=== PATIENT | female | born 1950 | race Hispanic/Latino ===

== ENCOUNTER 2018-05-15 11:11 | Emergency (ER) | payer MEDICAID, OTHER ==
[2018-05-15] MEDS ORDERED: ASPIRIN 325 MG TABLET ONE (11:21)
[2018-05-15 11:30] LABS: BASOPHILS % (AUTO) 0.3 % (0.0-5.0); EOSINOPHILS % (AUTO) 0.1 % (0.0-8.0); HEMATOCRIT 37.9 % (36-48); LYMPHOCYTES % (AUTO) 15.3 % (21.0-51.0); MEAN CORPUSCULAR HEMOGLOBIN 29.4 pg (27.0-33.0); MEAN CORPUSCULAR HGB CONC 33.8 g/dL (32.0-36.0); MEAN CORPUSCULAR VOLUME 86.8 fL (79-99); MONOCYTES % (AUTO) 5.9 % (3.0-13.0); NEUTROPHILS % (AUTO) 78.4 % (40.0-77.0); NUCLEATED RED BLOOD CELLS 0.1 % (0.0-0.19); PLATELET COUNT (AUTO) 235 K/uL (130-400); RED BLOOD CELL COUNT(AUTO) 4.37 MIL/uL (4.00-5.50); RED CELL DISTRIBUTION WIDTH 15.2 % (11.0-15.5); WHITE BLOOD COUNT (AUTO) 11.7 K/uL (4.8-10.8)
[2018-05-15 11:43] LABS: CREATININE 1.1 mg/dL (0.5-1.5); POTASSIUM 3.6 mmol/L (3.5-5.1)
[2018-05-15 11:48] LABS: ALBUMIN 3.5 g/dL (3.5-5.0); BILIRUBIN,TOTAL 0.9 mg/dL (0.2-1.0); TOTAL PROTEIN, SERUM 7.5 g/dL (6.0-8.3)
[2018-05-15 11:56] LABS: CREATINE KINASE, TOTAL 319 U/L (21-232); MYOGLOBIN 132 ng/mL (10-92); TROPONIN I < 0.04 ng/mL (0.00-0.06)
[2018-05-15 12:25] LABS: INR 1.07 (0.85-1.15); PARTIAL THROMBOPLASTIN TIME 37.2 SEC (26.3-35.5); PROTHROMBIN TIME 11.2 SEC (9.6-11.6)
== END 2018-05-15 14:34 | disposition home or self-care (01) ==
LOC: EDH 11:11
DX: J20.9 Acute bronchitis, unspecified (principal); R04.2 Hemoptysis
CPT/HCPCS: 36415; 71045; 80053; 82550; 83874; 84484; 85025; 85610; 85730; 93005

== ENCOUNTER 2018-08-21 16:55 | Emergency (ER) | payer OTHER ==
[2018-08-21] MEDS ORDERED: KETOROLAC TROMETHAMINE 30MG/ML ONE (17:43)
[2018-08-21 17:55] LABS: BASOPHILS % (AUTO) 0.4 % (0.0-5.0); EOSINOPHILS % (AUTO) 0.4 % (0.0-8.0); HEMATOCRIT 41.7 % (36-48); LYMPHOCYTES % (AUTO) 28.4 % (21.0-51.0); MEAN CORPUSCULAR HEMOGLOBIN 29.6 pg (27.0-33.0); MEAN CORPUSCULAR HGB CONC 33.6 g/dL (32.0-36.0); MEAN CORPUSCULAR VOLUME 88.1 fL (79-99); MONOCYTES % (AUTO) 6.4 % (3.0-13.0); NEUTROPHILS % (AUTO) 64.4 % (40.0-77.0); NUCLEATED RED BLOOD CELLS 0.1 % (0.0-0.19); PLATELET COUNT (AUTO) 280 K/uL (130-400); RED BLOOD CELL COUNT(AUTO) 4.73 MIL/uL (4.00-5.50); RED CELL DISTRIBUTION WIDTH 15.3 % (11.0-15.5); WHITE BLOOD COUNT (AUTO) 9.9 K/uL (4.8-10.8)
[2018-08-21 18:11] LABS: CREATININE 1.1 mg/dL (0.5-1.5); POTASSIUM 3.9 mmol/L (3.5-5.1)
[2018-08-21 18:12] LABS: INR 0.99 (0.85-1.15); PARTIAL THROMBOPLASTIN TIME 31.6 SEC (26.3-35.5); PROTHROMBIN TIME 10.4 SEC (9.6-11.6)
[2018-08-21 18:15] LABS: ALBUMIN 3.8 g/dL (3.5-5.0); BILIRUBIN,TOTAL 0.5 mg/dL (0.2-1.0); TOTAL PROTEIN, SERUM 7.4 g/dL (6.0-8.3)
== END 2018-08-21 19:10 | disposition home or self-care (01) ==
LOC: EDH 16:55
DX: R07.89 Other chest pain (principal); R53.1 Weakness
CPT/HCPCS: 36415; 71045; 80053; 82550; 84484; 85025; 85610; 85730; 93005; 96374; 99284; J1885

== ENCOUNTER 2019-06-29 11:30 | Inpatient (IN) | payer OTHER ==
[~2019-06-29] VITALS: Ht 154.9 cm; Wt 77.6 kg
[2019-06-29] MEDS ORDERED: ONDANSETRON HCL 4 MG/2 ML VIAL ONE (12:10)
[2019-06-29] MEDS ORDERED: SODIUM CHLORIDE 0.9% 1000ML 1,000 ML IV ONE (12:11)
[2019-06-29 12:13] LABS: BASOPHILS % (AUTO) 0.3 % (0.0-5.0); EOSINOPHILS % (AUTO) 0.1 % (0.0-8.0); LYMPHOCYTES % (AUTO) 4.4 % (21.0-51.0); MEAN CORPUSCULAR HEMOGLOBIN 28.8 pg (27.0-33.0); MEAN CORPUSCULAR HGB CONC 32.8 g/dL (32.0-36.0); MEAN CORPUSCULAR VOLUME 87.6 fL (79-99); MONOCYTES % (AUTO) 7.4 % (3.0-13.0); NEUTROPHILS % (AUTO) 87.3 % (40.0-77.0); PLATELET COUNT (AUTO) 264 K/uL (130-400); RED BLOOD CELL COUNT(AUTO) 4.45 MIL/uL (4.00-5.50); RED CELL DISTRIBUTION WIDTH 14.6 % (11.0-15.5); WHITE BLOOD COUNT (AUTO) 23.7 K/uL (4.8-10.8)
[2019-06-29 12:21] LABS: CREATININE 1.3 mg/dL (0.5-1.5); POTASSIUM 4.4 mmol/L (3.5-5.1)
[2019-06-29 12:26] LABS: BILIRUBIN,TOTAL 2.3 mg/dL (0.2-1.0); TOTAL PROTEIN, SERUM 7.2 g/dL (6.0-8.3)
[2019-06-29 14:28] LABS: APPEARANCE,URINE Cloudy (CLEAR); BILIRUBIN,URINE Small (NEGATIVE); COLOR,URINE Dark Yellow (YELLOW); GLUCOSE, URINE (UA) Negative (NEGATIVE); KETONES,URINE Negative (NEGATIVE); LEUKOCYTE ESTERASE ,URINE Moderate (NEGATIVE); NITRATE,URINE Negative (NEGATIVE); OCCULT BLOOD,URINE Trace (NEGATIVE); PROTEIN,URINE POS 1+ mg/dL (NEGATIVE)
[2019-06-29 14:37] LABS: BACTERIA,URINE Rare /HPF (None Seen); RBC,URINE 0-1 /HPF (0-1); SQUAMOUS EPITHELIAL CELL,UR Few /HPF (0-2)
[2019-06-29] MEDS ORDERED: CEFTRIAXONE SODIUM 1 GM ONE (15:12)
[2019-06-29] MEDS ORDERED: MORPHINE SULFATE 4 MG/1ML SYG ONE (15:13)
[2019-06-29] MEDS ORDERED: SODIUM CHLORIDE 0.9% 50 ML IV ONE (15:13)
[2019-06-29] MEDS ORDERED: ZOSYN 3.375GM+NS 50ML 50 ML IV SCH (17:30)
[2019-06-29] MEDS ORDERED: VANCOMYCIN PROTOCOL PER PHARMACY IV SCH (17:30)
[2019-06-29] MEDS ORDERED: DEXTROSE 5 % AND 0.9 % NACL 1,000 ML IV SCH (17:45)
[2019-06-29] MEDS ORDERED: COMPOUND IV REFRIGERATED 1 EACH IVSOLN MISC PRN (17:45)
[2019-06-29 18:35] VITALS: BP 125/67
[2019-06-29] MEDS: SODIUM CHLORIDE 0.9% 1000ML 1,000 ML IV SCH (18:48)
[2019-06-29 19:00] VITALS: BP 111/61
[2019-06-29] MEDS: METRONIDAZOLE 500MG/100ML BAG 100 ML IV SCH (21:25)
[2019-06-29] MEDS: VANCOMYCIN 1.25 GM in SODIUM CHLORIDE 0.9% 250 ML IV SCH (22:54)
[2019-06-29] MEDS: ZOSYN 3.375GM+NS 50ML 50 ML IV SCH (22:54)
[2019-06-29] MEDS: MORPHINE SULFATE 2 MG/ML 1ML SYG IV PRN (23:05)
[2019-06-30] VITALS: BP 109/57
[2019-06-30] MEDS: MORPHINE SULFATE 2 MG/ML 1ML SYG IV PRN ×4 (02:54→20:46)
--- NOTE | 2019-06-30 03:13 | NUR ---
NOTE AREA ON LEFT BUTTOCK WITH REDNESS/TENDER NOTED TO BE DRAINING SOME STAINS NOTED ON BED PAD. COLLECTED A SWAB AND PLACED 5 STERILE 4X4 GAUZES ON AREA SECURED WITH PAPER TAPE. CONTACTED HOSPITALIST PHYLICIA VERGARA TO NOTIFY. OBTAINED ORDERS FOR AN AEROBIC AND AEROBIC CULTURE TO BE DONE ON SWAB SAMPLE. NOTIFIED PATIENT OF NEW ORDER AND SENT SAMPLE TO LAB.
[2019-06-30 04:00] VITALS: BP 111/56
[2019-06-30 05:37] LABS: BASOPHILS % (AUTO) 0.2 % (0.0-5.0); EOSINOPHILS % (AUTO) 0.2 % (0.0-8.0); HEMATOCRIT 35.1 % (36-48); LYMPHOCYTES % (AUTO) 4.3 % (21.0-51.0); MEAN CORPUSCULAR HEMOGLOBIN 28.6 pg (27.0-33.0); MEAN CORPUSCULAR HGB CONC 31.9 g/dL (32.0-36.0); MEAN CORPUSCULAR VOLUME 89.5 fL (79-99); MONOCYTES % (AUTO) 7.1 % (3.0-13.0); NEUTROPHILS % (AUTO) 87.5 % (40.0-77.0); PLATELET COUNT (AUTO) 248 K/uL (130-400); RED BLOOD CELL COUNT(AUTO) 3.92 MIL/uL (4.00-5.50); RED CELL DISTRIBUTION WIDTH 14.7 % (11.0-15.5); WHITE BLOOD COUNT (AUTO) 18.2 K/uL (4.8-10.8)
[2019-06-30 06:06] LABS: ALBUMIN 2.3 g/dL (3.5-5.0); CREATININE 1.1 mg/dL (0.5-1.5); POTASSIUM 3.5 mmol/L (3.5-5.1)
[2019-06-30] MEDS: METRONIDAZOLE 500MG/100ML BAG 100 ML IV SCH ×2 (06:09→18:48)
[2019-06-30] MEDS: SODIUM CHLORIDE 0.9% 1000ML 1,000 ML IV SCH ×3 (06:09→23:45)
[2019-06-30 08:00] VITALS: BP 131/72
[2019-06-30] MEDS: FAMOTIDINE/PF 20 MG/2 ML VIAL IV SCH (08:37)
[2019-06-30] MEDS: ZOSYN 3.375GM+NS 50ML 50 ML IV SCH ×2 (08:37→20:53)
[2019-06-30] MEDS: ENOXAPARIN SODIUM 30 MG/0.3 ML SQ SCH (08:54)
[2019-06-30 11:58] VITALS: BP 103/61
--- NOTE | 2019-06-30 13:50 | NUR ---
[facility] consult Patient assessed as ordered. Patient presents with an abscess to left buttock which patient states she noticed 2 days ago. Patient states she has discomfort and has drainage. Upon assessment, erythema and induration extend from wound approx 8-10 cms in each direction and large amount of purulent drainage is noted. spoke with patient's nurse, Mony LEUNG, and recommendation for surgical consult was relayed. Addendum: 06/30/19 at 1521 by SAMY PAREDES RN/ Amended: Links added.
[2019-06-30] MEDS: ONDANSETRON HCL 4 MG/2 ML VIAL IVP PRN ×2 (14:58→20:45)
[2019-06-30 16:00] VITALS: BP 122/71
--- NOTE | 2019-06-30 16:58 | NUR ---
CONSULT ANAY HERRERA FROM DR. DAS'S OFFICE ASSESSED PATIENT. DRAINED LEFT BUTTOCK, DRAINAGE WITH SEROSANGUINEOUS PUS NOTED. PATIENT DENIED ANY PAIN AT THIS TIME. PER REMEDIOS, WILL REPORT TO DR. DAS AND WILL CALL WITH FURTHER ORDERS TONIGHT.
[2019-06-30 19:00] VITALS: BP 122/65
[2019-06-30] MEDS: VANCOMYCIN 1.25 GM in SODIUM CHLORIDE 0.9% 250 ML IV SCH (20:51)
--- NOTE | 2019-06-30 21:01 | NUR ---
MD CONSULT DR. ANN HERE TO SEE PATIENT. HE REVIEWED CT AND WENT TO TALK TO PATIENT WITH ME TRANSLATION FOR HIM. EXPLAINED TO PATIENT THAT HE WILL DO SURGERY TO DRAIN ABSCESS TOMORROW AND THAT GALLBLADDER WILL NEED TO WAIT FOR NOW UNTIL INFECTION IS RESOLVED. PATIENT ACKNOWLEDGED UNDERSTANDING. Addendum: 07/01/19 at 0849 by MARCK DOTSON RN RN AMEND TIME TO 2008
--- NOTE | 2019-06-30 21:05 | NUR ---
NOTE CHANGED DRESSING ON LEFT BUTTOCK. 2 4X4 GAUZES SATURATED WITH YELLOW/PINKISH DRIANAGE SLIGHTLY OPAQUE. NO FOUL ODOR NOTED. CLEANED AREA WITH NS AND APPLIED 5 4X4 STERILE GAUZES AND ABD PAD. SECURED WITH PAPER TAPE.
[2019-07-01] VITALS (36 sets, daily range): BP systolic 104–148; BP diastolic 34–80
--- NOTE | 2019-07-01 03:56 | NUR ---
NOTE AFTER TAKING SHOWER PATIENT STATES THAT IV GOT CAUGHT ON HAIR AND CAME OUT. ATTEMPTED TO START IV BUT WAS UNSUCCESSFUL AT THIS TIME. CHANGED DRESSING ON LEFT BUTTOCK. GAUZES WERE MODERATELY SATURATED WITH YELLOW/PINKISH DRIANAGE SLIGHTLY OPAQUE. NO FOUL ODOR NOTED. CLEANED AREA WITH NS AND APPLIED 5 4X4 STERILE GAUZES AND ABD PAD. SECURED WITH PAPER TAPE. PROVIDED PATIENT/DAUGHTER WITH EXIT CARE INFORMATION ON ABSCESS AND I&D. ANSWERED THEIR QUESTIONS AND SIGNED CONSENT FOR THE SURGERY.
[2019-07-01] MEDS: METRONIDAZOLE 500MG/100ML BAG 100 ML IV SCH ×2 (05:06→17:50)
[2019-07-01 05:54] LABS: BASOPHILS % (AUTO) 0.2 % (0.0-5.0); EOSINOPHILS % (AUTO) 0.7 % (0.0-8.0); LYMPHOCYTES % (AUTO) 6.8 % (21.0-51.0); MEAN CORPUSCULAR HEMOGLOBIN 27.9 pg (27.0-33.0); MEAN CORPUSCULAR HGB CONC 30.9 g/dL (32.0-36.0); MEAN CORPUSCULAR VOLUME 90.4 fL (79-99); MONOCYTES % (AUTO) 6.2 % (3.0-13.0); PLATELET COUNT (AUTO) 288 K/uL (130-400); RED BLOOD CELL COUNT(AUTO) 3.76 MIL/uL (4.00-5.50); RED CELL DISTRIBUTION WIDTH 15.1 % (11.0-15.5); WHITE BLOOD COUNT (AUTO) 13.3 K/uL (4.8-10.8)
[2019-07-01 06:12] LABS: ALBUMIN 2.2 g/dL (3.5-5.0); CREATININE 1.1 mg/dL (0.5-1.5); POTASSIUM 3.4 mmol/L (3.5-5.1); TOTAL PROTEIN, SERUM 5.9 g/dL (6.0-8.3)
--- NOTE | 2019-07-01 07:50 | NUR ---
NOTE AAOX3. DNEIES PAIN AT THIS TIME. DRESSING TO LEFT BUTTOCK AT THIS TIME. NO DISTRESS OR SOB. FAMILY AT HER SIDE. NO OTHER PROBLEMS VOICED. NPO FOR SURGERY TODAY WITH DR ANN.
[2019-07-01] MEDS: ENOXAPARIN SODIUM 30 MG/0.3 ML SQ SCH (09:00)
[2019-07-01] MEDS: FAMOTIDINE/PF 20 MG/2 ML VIAL IV SCH (09:03)
[2019-07-01] MEDS: ZOSYN 3.375GM+NS 50ML 50 ML IV SCH ×2 (09:03→20:46)
[2019-07-01] MEDS ORDERED: MIDAZOLAM HCL 1 MG/ML 2ML VIAL ONE (15:08)
[2019-07-01] MEDS ORDERED: LIDOCAINE PF 2% 5ML ABBOJECT ONE (15:08)
[2019-07-01] MEDS ORDERED: FENTANYL CITRATE PF 50 MCG/1 ML 2ML VIAL ONE (15:08)
[2019-07-01] MEDS ORDERED: PROPOFOL 10 MG/ML 20ML VIAL IV ONE (15:08)
[2019-07-01] MEDS ORDERED: DEXAMETHASONE SOD PHOSPHATE 10MG/ML 1ML VIAL ONE (15:08)
[2019-07-01] MEDS ORDERED: ONDANSETRON HCL 4 MG/2 ML VIAL ONE (15:08)
[2019-07-01] MEDS ORDERED: EPHEDRINE SULFATE 50 MG/ML AMPULE ONE (15:17)
[2019-07-01] MEDS ORDERED: MEPERIDINE-PF 25 MG/ML SYG ONE ×2 (15:45→16:07)
--- NOTE | 2019-07-01 16:36 | NUR ---
DC PLAN PER PATIENT, SHE IS SEMI-INDEPENDENT WITH ADLS OBTAINING HELP FROM SON, WHO SHE LIVES WITH. NO PROVIDER OR COMMUNITY RESOURCES IN USE,, NO DME, PER PATIENT HAD A FALL 3 MONTHS AGO DUE TO DIZZINESS BUT NO INJURY, AND FEELS SAFE TO RETURN HOME. SELF PAY PACKET GIVEN TO PATIENT, VERBALIZED UNDERSTANDING OF INFORMATION ON PACKET. Addendum: 07/01/19 at 1638 by ERIC NAGY RN CM Amended: Links added.
--- NOTE | 2019-07-01 17:00 | NUR ---
NOTE RETURNED FROM SURGERY AND SHE IS STABLE. NO COMPLAINS OF DISTRESS OR PAIN. DRESSING TO LEFT BUTTOCK D/I.
[2019-07-01] MEDS: SODIUM CHLORIDE 0.9% 1000ML 1,000 ML IV SCH (17:50)
[2019-07-01] MEDS: VANCOMYCIN 1.25 GM in SODIUM CHLORIDE 0.9% 250 ML IV SCH (20:45)
[2019-07-01] MEDS: SODIUM HYPOCHLORITE 0.25% [HALF STRENGTH] 473 ML TOPICAL SOLN TP SCH (20:46)
[2019-07-02 03:00] VITALS: BP 132/70
[2019-07-02 05:52] LABS: BASOPHILS % (AUTO) 0.6 % (0.0-5.0); EOSINOPHILS % (AUTO) 2.6 % (0.0-8.0); HEMATOCRIT 33.3 % (36-48); LYMPHOCYTES % (AUTO) 18.8 % (21.0-51.0); MEAN CORPUSCULAR HEMOGLOBIN 28.6 pg (27.0-33.0); MEAN CORPUSCULAR HGB CONC 31.2 g/dL (32.0-36.0); MEAN CORPUSCULAR VOLUME 91.5 fL (79-99); MONOCYTES % (AUTO) 6.2 % (3.0-13.0); NEUTROPHILS % (AUTO) 69.3 % (40.0-77.0); PLATELET COUNT (AUTO) 290 K/uL (130-400); RED BLOOD CELL COUNT(AUTO) 3.64 MIL/uL (4.00-5.50); RED CELL DISTRIBUTION WIDTH 15.4 % (11.0-15.5); WHITE BLOOD COUNT (AUTO) 9.6 K/uL (4.8-10.8)
[2019-07-02 06:09] LABS: ALBUMIN 2.1 g/dL (3.5-5.0); BILIRUBIN,TOTAL 0.8 mg/dL (0.2-1.0); POTASSIUM 3.4 mmol/L (3.5-5.1); TOTAL PROTEIN, SERUM 5.8 g/dL (6.0-8.3)
[2019-07-02] MEDS: METRONIDAZOLE 500MG/100ML BAG 100 ML IV SCH ×2 (06:38→16:53)
[2019-07-02 08:47] VITALS: BP 135/73
[2019-07-02] MEDS: FAMOTIDINE/PF 20 MG/2 ML VIAL IV SCH (10:42)
[2019-07-02] MEDS: SODIUM CHLORIDE 0.9% 1000ML 1,000 ML IV SCH (10:42)
[2019-07-02] MEDS: SODIUM HYPOCHLORITE 0.25% [HALF STRENGTH] 473 ML TOPICAL SOLN TP SCH ×3 (10:43→22:28)
[2019-07-02] MEDS: ZOSYN 3.375GM+NS 50ML 50 ML IV SCH ×2 (10:43→21:00)
[2019-07-02] MEDS: ENOXAPARIN SODIUM 30 MG/0.3 ML SQ SCH (10:44)
[2019-07-02] MEDS: MORPHINE SULFATE 2 MG/ML 1ML SYG IV PRN ×3 (11:36→22:07)
--- NOTE | 2019-07-02 12:01 | NUR ---
WOUND CARE Daughter Alison Savage had teaching of wound care and she did the wound care for the patient with nursing direction and provided successful return demonstration. A second daughter will come later in the evening to have her own teaching session of wound care. Plan for patient is to go home and have wound care at home done by her daughters.
[2019-07-02 12:38] VITALS: BP 126/73
[2019-07-02] MEDS ORDERED: SULFAMETHOX-TMP DS 800/160 TAB PO SCH ×2 (13:30→16:30)
[2019-07-02] MEDS ORDERED: POTASSIUM CHLORIDE 20 MEQ ERTAB PO SCH ×2 (13:30→16:30)
[2019-07-02 17:14] VITALS: BP 122/58
[2019-07-02] MEDS: VANCOMYCIN 1.25 GM in SODIUM CHLORIDE 0.9% 250 ML IV SCH ×2 (18:00→18:05)
--- NOTE | 2019-07-02 18:38 | NUR ---
WOUND CARE Both daughters Desire Boateng and Alison Savage have received wound care teaching. Both verbalized and demonstrated understanding. And both did returned demonstration successfully. Wound care was done twice during the shift and each daughter did one wound care change.
--- NOTE | 2019-07-02 18:47 | NUR ---
ORAL INTAKE Patient had lunch and dinner. Tolerated diet without any nausea or emesis but her appetite was decreased. States she has not been able to eat well for some time at home due to emesis. Explained physiology of gallbladder and bile production and of fat digestion. States she does not particularly eats any animal fat or very greasy foods. Encouraged to discuss this issue further with her doctor. Verbalized and demonstrated understanding.
[2019-07-02 19:00] VITALS: BP 132/74
[2019-07-02] MEDS: ONDANSETRON HCL 4 MG/2 ML VIAL IVP PRN (22:06)
[2019-07-02 23:00] VITALS: BP 127/62
[2019-07-03 03:00] VITALS: BP 125/73
[2019-07-03] MEDS: METRONIDAZOLE 500MG/100ML BAG 100 ML IV SCH (05:08)
[2019-07-03 08:00] VITALS: BP 142/70
[2019-07-03] MEDS: FAMOTIDINE/PF 20 MG/2 ML VIAL IV SCH (10:51)
[2019-07-03] MEDS: ZOSYN 3.375GM+NS 50ML 50 ML IV SCH (10:51)
[2019-07-03] MEDS: SODIUM HYPOCHLORITE 0.25% [HALF STRENGTH] 473 ML TOPICAL SOLN TP SCH ×2 (10:51→14:00)
[2019-07-03] MEDS: SODIUM CHLORIDE 0.9% 1000ML 1,000 ML IV SCH (10:52)
[2019-07-03] MEDS: MORPHINE SULFATE 2 MG/ML 1ML SYG IV PRN (10:52)
[2019-07-03] MEDS: ENOXAPARIN SODIUM 30 MG/0.3 ML SQ SCH (11:24)
[2019-07-03 12:00] VITALS: BP 131/71
[2019-07-03 15:58] VITALS: BP 144/72
[2019-07-03] MEDS ORDERED: CLIN300C9 PO (16:05)
--- NOTE | 2019-07-03 17:00 | NUR ---
WOUND CARE Second wound care change done at this time. Dr. Benedict spoke to patient and family and discharged her. Patient verbalized she has no pain and she ate all her dinner food. No nausea, no emesis.
[2019-07-03] MEDS ORDERED: VANCOMYCIN 1.5 GM in SODIUM CHLORIDE 0.9% 250 ML IV SCH (18:00)
--- NOTE | 2019-07-03 18:30 | NUR ---
NURSING NOTE Patient had wound care done twice today. Her incision to left buttock is healing. She has some yellow slough with increasing areas of pink epithelial, healthy-looking tissue. Wound is moist. Patient tolerates dressing changes well. Her daughter Lucrecia Boateng has been doing the dressing changes with nursing supervision and has provided return demonstration with no problems. Family member has been instructed on the importance of washing hands and of maintaining hygiene before, during, and after dressing changes. She was also informed to look for medical care if she notices any signs or symptoms of infection like erythema, swelling, warmth to area, or pain. There is some edema to periincisional area but is minimal. There is also an area of redness but it has decreased from yesterday to today in both size and color. Both patient and daughter verbalized and demonstrated understanding of discharge instructions. Prescription given to daughter for clindamycin. Daughter was also informed that a fever is 100.4 Farenheit degrees or above and that it would need to be reported to patient's doctor.
== END 2019-07-03 19:10 | disposition home or self-care (01) | DRG 854 ==
LOC: EDH 11:30 → EDHIP 11:31 → 4BH 18:24 → 3DH 07-02 06:35
PROVIDERS: ADMIT Family Medicine; ATTEND Family Medicine
PROC: 0KBP0ZZ Excision of Left Hip Muscle, Open Approach (ICD-10-PCS; principal; 2019-07-01 15:10)
DX: A41.9 Sepsis, unspecified organism (principal); N39.0 Urinary tract infection, site not specified; K57.92 Diverticulitis of intestine, part unspecified, without perforation or abscess without bleeding; E87.1 Hypo-osmolality and hyponatremia; E44.1 Mild protein-calorie malnutrition; L02.31 Cutaneous abscess of buttock; K80.20 Calculus of gallbladder without cholecystitis without obstruction; E66.01 Morbid (severe) obesity due to excess calories; E87.8 Other disorders of electrolyte and fluid balance, not elsewhere classified; Z68.32 Body mass index [BMI] 32.0-32.9, adult; E87.6 Hypokalemia
CPT/HCPCS: 36415; 71046; 74176; 74181; 76705; 80053; 80202; 81001; 82550; 82948; 83605; 83690; 84484; 85025; 87040; 87070; 87076; 87077; 87088; 87186; 87205; 87804; 93005; A6266; G0378; J0696; J1100; J1650; J2001; J2175; J2250; J2270; J2405; J2543; J2704; J3010; J3370; J3490; J7030

== ENCOUNTER 2019-07-07 14:58 | Inpatient (IN) | payer OTHER ==
[~2019-07-07] VITALS: Ht 162.6 cm; Wt 79.0 kg
[~2019-07-07 14:58] MED LIST: CLIN300C9 PO
[2019-07-07 15:45] LABS: APPEARANCE,URINE Clear (CLEAR); BILIRUBIN,URINE Negative (NEGATIVE); COLOR,URINE Yellow (YELLOW); GLUCOSE, URINE (UA) Negative (NEGATIVE); KETONES,URINE Negative (NEGATIVE); LEUKOCYTE ESTERASE ,URINE Trace (NEGATIVE); NITRATE,URINE Negative (NEGATIVE); OCCULT BLOOD,URINE Negative (NEGATIVE); PH,URINE 6.5 (5.0-8.0); PROTEIN,URINE Negative (NEGATIVE); UROBILINOGEN,URINE 0.2 mg/dL (0.2-1.0)
[2019-07-07 15:56] LABS: BACTERIA,URINE Few /HPF (None Seen); MUCUS,URINE None Seen LPF (None Seen); SQUAMOUS EPITHELIAL CELL,UR Few /HPF (0-2)
[2019-07-07 16:08] LABS: BASOPHILS % (AUTO) 0.5 % (0.0-5.0); EOSINOPHILS % (AUTO) 1.1 % (0.0-8.0); HEMATOCRIT 39.5 % (36-48); LYMPHOCYTES % (AUTO) 16.8 % (21.0-51.0); MEAN CORPUSCULAR HEMOGLOBIN 28.7 pg (27.0-33.0); MEAN CORPUSCULAR HGB CONC 31.6 g/dL (32.0-36.0); MEAN CORPUSCULAR VOLUME 90.8 fL (79-99); MONOCYTES % (AUTO) 6.7 % (3.0-13.0); PLATELET COUNT (AUTO) 333 K/uL (130-400); RED BLOOD CELL COUNT(AUTO) 4.35 MIL/uL (4.00-5.50); RED CELL DISTRIBUTION WIDTH 15.2 % (11.0-15.5); WHITE BLOOD COUNT (AUTO) 10.7 K/uL (4.8-10.8)
[2019-07-07 16:20] LABS: PARTIAL THROMBOPLASTIN TIME 29.4 SEC (26.3-35.5)
[2019-07-07 16:21] LABS: CREATININE 0.9 mg/dL (0.5-1.5); POTASSIUM 4.3 mmol/L (3.5-5.1)
[2019-07-07 16:25] LABS: ALBUMIN 3.2 g/dL (3.5-5.0); BILIRUBIN,TOTAL 0.4 mg/dL (0.2-1.0); TOTAL PROTEIN, SERUM 6.5 g/dL (6.0-8.3)
[2019-07-07 16:36] LABS: INR 1.02 (0.85-1.15); PROTHROMBIN TIME 10.7 SEC (9.6-11.6)
[2019-07-07] MEDS ORDERED: KETOROLAC TROMETHAMINE 15MG/ML ONE ×2 (16:44→19:29)
[2019-07-07] MEDS ORDERED: HYOSCYAMINE SULFATE 0.125 MG TAB.SUBL SL ONE (16:44)
[2019-07-07] MEDS ORDERED: ZOSYN 3.375GM+NS 50ML 50 ML IV ONE (16:44)
[2019-07-07] MEDS ORDERED: FAMOTIDINE/PF 20 MG/2 ML VIAL IV ONE (16:45)
[2019-07-07] MEDS ORDERED: RENAL DOSE IV SCH (17:45)
[2019-07-07] MEDS ORDERED: VANCOMYCIN 1.75 GM in SODIUM CHLORIDE 0.9% 250 ML IV ONE (17:45)
[2019-07-07] MEDS ORDERED: HYDRALAZINE HCL 20 MG/ML VIAL IV PRN (18:30)
[2019-07-07] MEDS ORDERED: ACETAMINOPHEN 325 MG TAB PO PRN (18:30)
[2019-07-07] MEDS ORDERED: KETOROLAC TROMETHAMINE 15MG/ML IV SCH (19:30)
[2019-07-07] MEDS ORDERED: FAMOTIDINE/PF 20 MG/2 ML VIAL IV SCH (19:30)
[2019-07-07] MEDS ORDERED: DEXTROSE 5%-LACTATED RINGERS 1,000 ML IV ONE (20:21)
[2019-07-07 21:05] VITALS: BP 156/77
[2019-07-07] MEDS: DEXTROSE 5%-LACTATED RINGERS 1,000 ML IV SCH (22:21)
[2019-07-07 23:00] VITALS: BP 139/75
[2019-07-08] MEDS: ZOSYN 3.375GM+NS 50ML 50 ML IV SCH ×3 (01:32→17:00)
[2019-07-08 03:00] VITALS: BP 160/77
[2019-07-08 08:00] VITALS: BP 122/65
--- NOTE | 2019-07-08 08:00 | NUR ---
NPO FOR SURGICAL EVAL. Addendum: 07/08/19 at 1756 by JOSE CLINTON RN RN Amended: Links added.
[2019-07-08] MEDS: ENOXAPARIN SODIUM 30 MG/0.3 ML SQ SCH (09:23)
[2019-07-08 11:54] VITALS: BP 135/77
--- NOTE | 2019-07-08 12:45 | NUR ---
BISI CUEVA IN TO SEE PT. TALKED TO PT. AND FAMILY, ORDERED HIDA SCAN AND WILL GO FROM THERE ONCE REPORT IS BACK. MESSAGE PASSED ON TO HS AND SHE WILL MAKE ARRANGEMENTS TO TRANSFER FOR EXAM. PT. AND FAMILY MADE AWARE.
--- NOTE | 2019-07-08 14:30 | NUR ---
DCP CM met with pt discussed dc plans. Pt is independent prior to admission, son lives w/pt at home. Denies any equipments/services. Feels safe to go back home, son and daughters able to assist with transportation and needs as necessary. DC plan to home once stable. CM to cont to follow up. Addendum: 07/08/19 at 1432 by VERONIQUE RILEY LVN CM Amended: Links added.
--- NOTE | 2019-07-08 14:30 | NUR ---
[facility] consult Patient assessed as ordered. Patient is a good candidate for wound vac for use on wound. Recommendation submitted pending approval by . Addendum: 07/08/19 at 1514 by SAMY PAREDES RN/JASBIR Amended: Links added.
--- NOTE | 2019-07-08 14:50 | NUR ---
WOUND CARE STAFF IN TO SEE PT. REC. MADE. ARE. WILL NEED A WOUND VAC.
[2019-07-08 15:50] VITALS: BP 156/80
--- NOTE | 2019-07-08 17:00 | NUR ---
1700 ZOSYN DOSE NOT GIVEN, PT. TRANSFERRED TO [facility] FOR EXAM. WILL RETURN AFTER HIDA SCAN DONE.
--- NOTE | 2019-07-08 19:36 | NUR ---
REPORT ENDORSED TO PM NURSE.PT. STILL OUT OF HOSPITAL.
[2019-07-08] MEDS: DEXTROSE 5%-LACTATED RINGERS 1,000 ML IV SCH (20:25)
[2019-07-09 00:03] VITALS: BP 153/82
[2019-07-09] MEDS: ZOSYN 3.375GM+NS 50ML 50 ML IV SCH ×3 (01:15→10:26)
[2019-07-09] MEDS: DEXTROSE 5%-LACTATED RINGERS 1,000 ML IV SCH ×2 (01:15→21:09)
[2019-07-09 04:20] VITALS: BP 146/70
[2019-07-09 05:27] LABS: BASOPHILS % (AUTO) 0.7 % (0.0-5.0); EOSINOPHILS % (AUTO) 2.5 % (0.0-8.0); HEMATOCRIT 37.1 % (36-48); LYMPHOCYTES % (AUTO) 26.2 % (21.0-51.0); MEAN CORPUSCULAR HEMOGLOBIN 28.1 pg (27.0-33.0); MEAN CORPUSCULAR HGB CONC 30.7 g/dL (32.0-36.0); MEAN CORPUSCULAR VOLUME 91.6 fL (79-99); MONOCYTES % (AUTO) 8.8 % (3.0-13.0); NEUTROPHILS % (AUTO) 60.2 % (40.0-77.0); PLATELET COUNT (AUTO) 288 K/uL (130-400); RED BLOOD CELL COUNT(AUTO) 4.05 MIL/uL (4.00-5.50); RED CELL DISTRIBUTION WIDTH 15.2 % (11.0-15.5); WHITE BLOOD COUNT (AUTO) 6.7 K/uL (4.8-10.8)
[2019-07-09 05:52] LABS: CREATININE 1.2 mg/dL (0.5-1.5)
--- NOTE | 2019-07-09 07:30 | NUR ---
SURGICAL CONSULT IN PLACE , HERE AND GIVEN INFORMATION. WAS ALSO INFORMED THAT PT HAD I/D OF LT. BUTTOCK ABSCESS [address] 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
[2019-07-09 08:00] VITALS: BP 138/71
--- NOTE | 2019-07-09 08:03 | NUR ---
PATIENT UPDATE Back from hida scan at 2200, result negative. Slept well overnight, no complaints of any abdominal pain, no nausea and vomiting. Daughter at the bedside made aware about the suggestion of the wound care nurse for the need for a wound vac for the left buttock wound, will let the md know. Family member changed the dressing, wet to dy dressing using the kerlix roll done, pt tolerated the procedure well..
[2019-07-09] MEDS: ENOXAPARIN SODIUM 30 MG/0.3 ML SQ SCH ×2 (10:24→10:27)
[2019-07-09 11:10] VITALS: BP 155/85
[2019-07-09 16:00] VITALS: BP 123/68
--- NOTE | 2019-07-09 17:30 | NUR ---
DR. 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 STATED HE WOULD NOT SEE PT..
--- NOTE | 2019-07-09 18:00 | NUR ---
DR DUNLAP BACK FOR A DIFFERENT CONSULT AND WAS INFORMED OF DHEVAN RESPONSE AND HE THEN SAW PT. AND GAVE ORDERS.
[2019-07-09 19:00] VITALS: BP 148/85
--- NOTE | 2019-07-09 19:30 | NUR ---
PM Assessment Received pt alone requested to have a shower, D5LR at 75cc/hr stop at this time, routine assessment done, plan of care discuss, currently denies discomfort. Pt made aware possible d/c in am if able to tolerate diet.
[2019-07-09] MEDS ORDERED: MORPHINE SULFATE 2 MG/ML 1ML SYG ONE (21:41)
[2019-07-09] MEDS ORDERED: MORPHINE SULFATE 2 MG/ML 1ML SYG IVP ONE (21:45)
[2019-07-10] VITALS (28 sets, daily range): BP systolic 136–177; BP diastolic 68–96
[2019-07-10] MEDS: ZOSYN 3.375GM+NS 50ML 50 ML IV SCH ×3 (01:43→16:55)
[2019-07-10 04:54] LABS: BASOPHILS % (AUTO) 0.6 % (0.0-5.0); EOSINOPHILS % (AUTO) 1.5 % (0.0-8.0); HEMATOCRIT 37.3 % (36-48); LYMPHOCYTES % (AUTO) 31.2 % (21.0-51.0); MEAN CORPUSCULAR HEMOGLOBIN 28.6 pg (27.0-33.0); MEAN CORPUSCULAR HGB CONC 31.4 g/dL (32.0-36.0); MEAN CORPUSCULAR VOLUME 91.2 fL (79-99); NEUTROPHILS % (AUTO) 58.7 % (40.0-77.0); PLATELET COUNT (AUTO) 304 K/uL (130-400); RED BLOOD CELL COUNT(AUTO) 4.09 MIL/uL (4.00-5.50); RED CELL DISTRIBUTION WIDTH 15.3 % (11.0-15.5); WHITE BLOOD COUNT (AUTO) 6.8 K/uL (4.8-10.8)
[2019-07-10 05:02] LABS: CREATININE 1.2 mg/dL (0.5-1.5); POTASSIUM 4.1 mmol/L (3.5-5.1)
[2019-07-10] MEDS: ENOXAPARIN SODIUM 30 MG/0.3 ML SQ SCH (09:00)
--- NOTE | 2019-07-10 09:00 | NUR ---
PARTH HELD THIS AM ,PT. GOING TO OR.
--- NOTE | 2019-07-10 09:05 | NUR ---
DR. DUNLAP IN TO SEE PT.PLAN NOW IS TO TAKE PT. TO OR FOR [facility]. CHARGE NURSE NOTIFIED. PT. HAS BEEN NPO .SINCE ADMISSION.
[2019-07-10] MEDS ORDERED: LIDOCAINE PF 2% 5ML ABBOJECT ONE (11:12)
[2019-07-10] MEDS ORDERED: DEXAMETHASONE SOD PHOSPHATE 10MG/ML 1ML VIAL ONE (11:12)
[2019-07-10] MEDS ORDERED: SUCCINYLCHOLINE 200MG/10ML SYR ONE (11:12)
[2019-07-10] MEDS ORDERED: ONDANSETRON HCL 4 MG/2 ML VIAL ONE (11:13)
[2019-07-10] MEDS ORDERED: MIDAZOLAM HCL 1 MG/ML 2ML VIAL ONE (11:13)
[2019-07-10] MEDS ORDERED: GLYCOPYRROLATE 1 MG/5 ML SYRINGE ONE (11:13)
[2019-07-10] MEDS ORDERED: NEOSTIGMINE 5MG/5ML SYR IV ONE (11:13)
[2019-07-10] MEDS ORDERED: ROCURONIUM 10MG/1ML SYR 10 MG/ML ML ONE (11:14)
[2019-07-10] MEDS ORDERED: FENTANYL CITRATE PF 50 MCG/1 ML 2ML VIAL ONE ×2 (11:14→11:53)
[2019-07-10] MEDS ORDERED: PROPOFOL 10 MG/ML 20ML VIAL IV ONE (11:14)
[2019-07-10] MEDS ORDERED: BUPIVACAINE/PF 0.5% 30ML VIAL ONE (11:45)
[2019-07-10] MEDS: DEXTROSE 5%-LACTATED RINGERS 1,000 ML IV SCH (12:25)
[2019-07-10] MEDS ORDERED: MEPERIDINE-PF 25 MG/ML SYG ONE ×2 (12:33→12:45)
--- NOTE | 2019-07-10 13:33 | NUR ---
POST OP NOTE. BACK TO ROOM, AWAKE, SLIGHT DISCOMFORT TO SURGICAL ABD,. 3 BAND AIDS SCATTERED ON ABD. BP 144/78, HR65, O2 SAT 97% ON 2 LITERS O2.CAN HAVE CL.LIQ. DIET. LABS IN AM, IS WHILE AWAKE
[2019-07-10] MEDS ORDERED: ACETAMINOPHEN-CODEINE 300/30MG TAB PO PRN (13:45)
[2019-07-10] MEDS: LACTATED RINGERS 1000ML 1,000 ML IV SCH ×2 (14:58→23:45)
--- NOTE | 2019-07-10 21:36 | NUR ---
WOUND CARE Pt and daughter still undecided about wound vac,pt states her 2 daughters take turns doing dressing changes.For now she wants to leave wet to dry dressing on.
[2019-07-11 00:02] VITALS: BP 148/88
--- NOTE | 2019-07-11 01:13 | NUR ---
NOTIFIED TANK ASSEMBLER Notified hospitalist distributed energy systems consultant [facility] Sew On Operator,pt undecided on wound vac,states she might leave tomorrow.
[2019-07-11] MEDS: DEXTROSE 5%-LACTATED RINGERS 1,000 ML IV SCH ×2 (01:45→08:56)
[2019-07-11] MEDS: ZOSYN 3.375GM+NS 50ML 50 ML IV SCH ×2 (01:49→08:57)
[2019-07-11] MEDS: LACTATED RINGERS 1000ML 1,000 ML IV SCH (01:55)
[2019-07-11 04:00] VITALS: BP 132/76
[2019-07-11 04:10] VITALS: BP 132/76
--- NOTE | 2019-07-11 05:21 | NUR ---
PM NOTES Pt slept faily well,was medicated once with tylenol 3 for c/o of pain,verbalized relief.
[2019-07-11 05:46] LABS: HEMATOCRIT 33.5 % (36-48); MEAN CORPUSCULAR HEMOGLOBIN 29.1 pg (27.0-33.0); MEAN CORPUSCULAR HGB CONC 32.2 g/dL (32.0-36.0); MEAN CORPUSCULAR VOLUME 90.3 fL (79-99); PLATELET COUNT (AUTO) 321 K/uL (130-400); RED BLOOD CELL COUNT(AUTO) 3.71 MIL/uL (4.00-5.50); RED CELL DISTRIBUTION WIDTH 14.6 % (11.0-15.5); WHITE BLOOD COUNT (AUTO) 14.4 K/uL (4.8-10.8)
[2019-07-11 06:24] LABS: ALBUMIN 2.5 g/dL (3.5-5.0); BILIRUBIN,TOTAL 0.7 mg/dL (0.2-1.0); CREATININE 1.1 mg/dL (0.5-1.5); POTASSIUM 4.2 mmol/L (3.5-5.1)
[2019-07-11 07:20] VITALS: BP 143/82
[2019-07-11 09:38] LABS: LYMPHOCYTES % (MANUAL) 19 % (22-44); MAN.DIFF COMMENT-IMPRESSION MANUAL DIFFERENTIAL; MONOCYTES % (MANUAL) 3 % (2-9); PLATELET MORPHOLOGY COMMENT ADEQUATE; SEGMENTED NEUTROPHILS % 78 % (40-70)
[2019-07-11 11:51] VITALS: BP 124/68
[2019-07-11] MEDS ORDERED: SULF1TAB42 PO (13:05)
[2019-07-11] MEDS ORDERED: ACET1TAB12 PO (13:17)
== END 2019-07-11 13:58 | disposition home or self-care (01) | DRG 419 ==
LOC: EDH 14:58 → EDHIP 14:59 → 3BH 20:02
PROVIDERS: ADMIT Internal Medicine; ATTEND Internal Medicine
PROC: 0FT44ZZ Resection of Gallbladder, Percutaneous Endoscopic Approach (ICD-10-PCS; principal; 2019-07-10 12:00)
DX: K80.00 Calculus of gallbladder with acute cholecystitis without obstruction (principal); Z68.34 Body mass index [BMI] 34.0-34.9, adult; E66.01 Morbid (severe) obesity due to excess calories; N32.89 Other specified disorders of bladder; I10 Essential (primary) hypertension; R63.3 Feeding difficulties; Z83.3 Family history of diabetes mellitus; Z82.3 Family history of stroke; Z82.49 Family history of ischemic heart disease and other diseases of the circulatory system; Z82.0 Family history of epilepsy and other diseases of the nervous system
CPT/HCPCS: 36415; 71045; 74176; 76705; 80048; 80053; 81001; 82150; 82550; 83605; 83690; 84145; 84484; 84702; 85025; 85610; 85730; 87040; 88304; 93005; G0378; J0330; J1100; J1650; J1885; J2001; J2175; J2250; J2405; J2543; J2704; J2710; J3010; J3370; J3490; J7030; J7120

== ENCOUNTER 2019-07-22 20:35 | Emergency (ER) | payer OTHER ==
[~2019-07-22 20:35] MED LIST changes: +ACET1TAB12 PO; -CLIN300C9 PO; +SULF1TAB42 PO
[2019-07-22] MEDS ORDERED: ACETAMINOPHEN 325 MG TAB ONE (21:31)
== END 2019-07-23 00:20 | disposition home or self-care (01) ==
LOC: EDH 20:35
DX: S00.03XA Contusion of scalp, initial encounter (principal); W22.8XXA Striking against or struck by other objects, initial encounter; Y93.89 Activity, other specified; Y92.098 Other place in other non-institutional residence as the place of occurrence of the external cause; Y99.8 Other external cause status
CPT/HCPCS: 70450

== ENCOUNTER 2019-07-25 10:26 | Emergency (ER) | payer OTHER | END 2019-07-25 10:43 | disposition home or self-care (01) | LOC: EDH 10:26 | DX: Z48.02 Encounter for removal of sutures (principal); Z90.49 Acquired absence of other specified parts of digestive tract ==

== ENCOUNTER 2019-09-07 22:50 | Emergency (ER) | payer OTHER ==
[2019-09-07 23:21] LABS: APPEARANCE,URINE Clear (CLEAR); BILIRUBIN,URINE Negative (NEGATIVE); COLOR,URINE Yellow (YELLOW); GLUCOSE, URINE (UA) Negative (NEGATIVE); KETONES,URINE Negative (NEGATIVE); LEUKOCYTE ESTERASE ,URINE Moderate (NEGATIVE); NITRATE,URINE Negative (NEGATIVE); OCCULT BLOOD,URINE Negative (NEGATIVE); PROTEIN,URINE Negative (NEGATIVE); UROBILINOGEN,URINE 0.2 mg/dL (0.2-1.0)
[2019-09-07 23:25] LABS: BASOPHILS % (AUTO) 0.3 % (0.0-5.0); EOSINOPHILS % (AUTO) 0.5 % (0.0-8.0); HEMATOCRIT 41.9 % (36-48); LYMPHOCYTES % (AUTO) 31.8 % (21.0-51.0); MEAN CORPUSCULAR HEMOGLOBIN 28.9 pg (27.0-33.0); MEAN CORPUSCULAR HGB CONC 32.2 g/dL (32.0-36.0); MEAN CORPUSCULAR VOLUME 89.7 fL (79-99); MONOCYTES % (AUTO) 6.3 % (3.0-13.0); NEUTROPHILS % (AUTO) 60.9 % (40.0-77.0); PLATELET COUNT (AUTO) 333 K/uL (130-400); RED BLOOD CELL COUNT(AUTO) 4.67 MIL/uL (4.00-5.50); RED CELL DISTRIBUTION WIDTH 15.1 % (11.0-15.5); WHITE BLOOD COUNT (AUTO) 12.3 K/uL (4.8-10.8)
[2019-09-07 23:36] LABS: CREATININE 1.1 mg/dL (0.5-1.5); POTASSIUM 4.6 mmol/L (3.5-5.1)
[2019-09-07 23:40] LABS: ALBUMIN 4.2 g/dL (3.5-5.0); BILIRUBIN,TOTAL 0.9 mg/dL (0.2-1.0); TOTAL PROTEIN, SERUM 8.3 g/dL (6.0-8.3)
[2019-09-07 23:46] LABS: BACTERIA,URINE Few /HPF (None Seen); RBC,URINE 0-1 /HPF (0-1)
[2019-09-07 23:47] LABS: SQUAMOUS EPITHELIAL CELL,UR 0-2 /HPF (0-2)
[2019-09-07] MEDS ORDERED: ONDANSETRON HCL 4 MG/2 ML VIAL ONE (23:49)
[2019-09-07] MEDS ORDERED: SODIUM CHLORIDE 0.9% 1000ML 1,000 ML IV ONE (23:50)
[2019-09-07] MEDS ORDERED: MORPHINE SULFATE 4 MG/1ML SYG ONE (23:50)
[2019-09-08] MEDS ORDERED: CEFTRIAXONE SODIUM 1 GM ONE (00:41)
[2019-09-08] MEDS ORDERED: SODIUM CHLORIDE 0.9% 50 ML IV ONE (00:42)
== END 2019-09-08 01:48 | disposition home or self-care (01) ==
LOC: EDH 22:50
DX: N39.0 Urinary tract infection, site not specified (principal); K43.9 Ventral hernia without obstruction or gangrene
CPT/HCPCS: 36415; 74176; 80053; 81001; 83690; 84484; 85025; 87088; 93005; 96374; 96375 ×2; 99285; J0696; J2270; J2405; J7030

== ENCOUNTER 2019-12-17 18:51 | Emergency (ER) | payer MEDICAID, OTHER ==
[2019-12-17] MEDS ORDERED: ONDANSETRON HCL 4 MG/2 ML VIAL ONE (19:22)
[2019-12-17] MEDS ORDERED: MORPHINE SULFATE 4 MG/1ML SYG ONE (19:28)
[2019-12-17] MEDS ORDERED: IOHEXOL-350 75 ML VIAL IV ONE (19:58)
[2019-12-17] MEDS ORDERED: ORPHENADRINE CITRATE 30 MG/ML ML ONE (20:25)
[2019-12-17] MEDS ORDERED: KETOROLAC TROMETHAMINE 15MG/ML ONE (20:25)
== END 2019-12-17 21:07 | disposition home or self-care (01) ==
LOC: EDH 18:51
DX: K42.9 Umbilical hernia without obstruction or gangrene (principal)
CPT/HCPCS: 36415; 74177; 80053; 81003; 83690; 84484; 85025; 96372; 96374; 96375; 99285; J1885; J2270; J2360; J2405; Q9967

== ENCOUNTER 2020-02-17 16:56 | Emergency (ER) | payer OTHER ==
[2020-02-17 17:47] LABS: BASOPHILS % (AUTO) 0.2 % (0.0-5.0); EOSINOPHILS % (AUTO) 0.1 % (0.0-8.0); HEMATOCRIT 41.1 % (36-48); LYMPHOCYTES % (AUTO) 7.6 % (21.0-51.0); MEAN CORPUSCULAR HEMOGLOBIN 29.1 pg (27.0-33.0); MEAN CORPUSCULAR HGB CONC 32.4 g/dL (32.0-36.0); MEAN CORPUSCULAR VOLUME 89.9 fL (79-99); MONOCYTES % (AUTO) 3.6 % (3.0-13.0); NEUTROPHILS % (AUTO) 87.9 % (40.0-77.0); PLATELET COUNT (AUTO) 291 K/uL (130-400); RED BLOOD CELL COUNT(AUTO) 4.57 MIL/uL (4.00-5.50); WHITE BLOOD COUNT (AUTO) 10.7 K/uL (4.8-10.8)
[2020-02-17] MEDS ORDERED: ONDANSETRON HCL 4 MG/2 ML VIAL ONE (18:05)
[2020-02-17] MEDS ORDERED: MORPHINE SULFATE 2 MG/ML 1ML SYG ONE (18:06)
[2020-02-17] MEDS ORDERED: FAMOTIDINE/PF 20 MG/2 ML VIAL IV ONE (18:06)
[2020-02-17 18:39] LABS: APPEARANCE,URINE Clear (CLEAR); BILIRUBIN,URINE Negative (NEGATIVE); COLOR,URINE Yellow (YELLOW); GLUCOSE, URINE (UA) Negative (NEGATIVE); KETONES,URINE 15 mg/dL (NEGATIVE); LEUKOCYTE ESTERASE ,URINE Moderate (NEGATIVE); NITRATE,URINE Negative (NEGATIVE); OCCULT BLOOD,URINE Negative (NEGATIVE); PH,URINE 6.5 (5.0-8.0); POTASSIUM 3.9 mmol/L (3.5-5.1); PROTEIN,URINE Trace mg/dL (NEGATIVE)
[2020-02-17 18:53] LABS: RBC,URINE 0-1 /HPF (0-1)
[2020-02-17 18:54] LABS: BACTERIA,URINE Rare /HPF (None Seen); SQUAMOUS EPITHELIAL CELL,UR Rare /HPF (0-2)
[2020-02-17 19:12] LABS: ALBUMIN 3.8 g/dL (3.5-5.0); BILIRUBIN,DIRECT 0.1 mg/dL (0.0-0.3); BILIRUBIN,TOTAL 0.8 mg/dL (0.2-1.0); TOTAL PROTEIN, SERUM 7.5 g/dL (6.0-8.3)
[2020-02-17] MEDS ORDERED: HYOSCYAMINE SULFATE 0.125 MG TAB.SUBL SL ONE (20:52)
[2020-02-17] MEDS ORDERED: SUCRALFATE 1 GM TABLET ONE (20:52)
== END 2020-02-17 23:15 | disposition home or self-care (01) ==
LOC: EDH 16:56
DX: K42.9 Umbilical hernia without obstruction or gangrene (principal); R10.13 Epigastric pain; R11.10 Vomiting, unspecified; Z22.322 Carrier or suspected carrier of Methicillin resistant Staphylococcus aureus
CPT/HCPCS: 36415; 74176; 80048; 80076; 81001; 82550; 83690; 83880; 84484; 85025; 87088; 93005; 96374; 96375; 99285; J2405; J3490

== ENCOUNTER 2023-03-22 17:00 | Observation (INO) | payer MEDICAID, OTHER ==
[~2023-03-22] VITALS: Ht 165.1 cm; Wt 77.4 kg
[2023-03-22 17:47] LABS: BASOPHILS # (AUTO) 0.03 K/uL (0.00-0.20); BASOPHILS % (AUTO) 0.5 % (0.0-5.0); EOSINOPHILS # (AUTO) 0.04 K/uL (0.00-0.70); EOSINOPHILS % (AUTO) 0.6 % (0.0-8.0); HEMATOCRIT 43.7 % (36-48); IMMATURE GRANULOCYTE ABSOLUTE 0.02 K/uL (0-1); LYMPHOCYTES % (AUTO) 30.6 % (21.0-51.0); MEAN CORPUSCULAR HEMOGLOBIN 28.9 pg (27.0-33.0); MEAN CORPUSCULAR HGB CONC 31.8 g/dL (32.0-36.0); MEAN CORPUSCULAR VOLUME 90.9 fL (79-99); MONOCYTES # (AUTO) 0.9 K/uL (0.1-1.0); MONOCYTES % (AUTO) 14.2 % (3.0-13.0); NEUTROPHILS # (AUTO) 3.5 K/uL (1.8-7.7); NEUTROPHILS % (AUTO) 53.8 % (40.0-77.0); PLATELET COUNT (AUTO) 248 K/uL (130-400); RED BLOOD CELL COUNT(AUTO) 4.81 MIL/uL (4.00-5.50); RED CELL DISTRIBUTION WIDTH 14.8 % (11.0-15.5); WHITE BLOOD COUNT (AUTO) 6.5 K/uL (4.8-10.8)
[2023-03-22 18:08] LABS: ALBUMIN 3.7 g/dL (3.5-5.0); BILIRUBIN,TOTAL 0.8 mg/dL (0.2-1.0); CREATININE 1.2 mg/dL (0.5-1.5); MAGNESIUM 1.9 mg/dL (1.80-2.40); POTASSIUM 3.9 mmol/L (3.5-5.1); TOTAL PROTEIN, SERUM 7.5 g/dL (6.0-8.3)
[2023-03-22] MEDS ORDERED: IOHEXOL 350 MG/ML 100ML INFUS..BTL IV ONE (20:07)
[2023-03-22 21:01] LABS: APPEARANCE,URINE CLEAR (CLEAR); BILIRUBIN,URINE NEGATIVE (NEGATIVE); COLOR,URINE YELLOW (YELLOW); GLUCOSE, URINE (UA) NEGATIVE (NEGATIVE); KETONES,URINE NEGATIVE (NEGATIVE); LEUKOCYTE ESTERASE ,URINE 500 Leu/uL (NEGATIVE); NITRATE,URINE NEGATIVE (NEGATIVE); PH,URINE 5.5 (5.0-8.0); PROTEIN,URINE 10 mg/dL (NEGATIVE); UROBILINOGEN,URINE 0.2 mg/dL (0.2-1.0)
[2023-03-22 21:03] LABS: ADD UA MICROSCOPIC YES
[2023-03-22 21:05] LABS: BACTERIA,URINE MOD /HPF (None Seen); MUCUS,URINE FEW LPF (None Seen); SQUAMOUS EPITHELIAL CELL,UR FEW /HPF (0-2)
[2023-03-22 21:16] LABS: SARS-CoV-2, RNA, NAAT POSITIVE SARS CoV-2 (NEGATIVE)
[2023-03-22 21:21] LABS: INFLUENZA TYPE A Negative For Type A (NEGATIVE)
[2023-03-22 21:26] LABS: INFLUENZA TYPE B Positive For Type B (NEGATIVE)
[2023-03-22] MEDS ORDERED: CEFTRIAXONE 2GM VIAL IVPB ONE (21:30)
[2023-03-22] MEDS ORDERED: 0.9%NACL 1000ML 1,000 ML IV ONE (21:30)
[2023-03-22] MEDS: CEFTRIAXONE 2GM VIAL IVPB SCH (23:00)
[2023-03-22] MEDS ORDERED: ALBUTEROL 0.083% 2.5 MG/3 ML INH IH PRN (23:00)
[2023-03-22] MEDS ORDERED: ONDANSETRON 4MG INJ IV PRN (23:00)
[2023-03-22] MEDS ORDERED: GUAIFENESIN-DM 200/20 MG 10 ML PO PRN (23:00)
[2023-03-22] MEDS ORDERED: ACETAMINOPHEN 325 MG TAB PO PRN ×2 (23:00)
[2023-03-22] MEDS ORDERED: OSELTAMIVIR PHOSPHATE 75 MG CAP PO ONE (23:10)
[2023-03-23] VITALS (13 sets, daily range): BP systolic 137–156; BP diastolic 64–89; PULSE 62–86; RESP 16–20; O2SAT 95–98
[2023-03-23 07:08] LABS: HEMATOCRIT 42.1 % (36-48); MEAN CORPUSCULAR HEMOGLOBIN 28.9 pg (27.0-33.0); MEAN CORPUSCULAR HGB CONC 32.3 g/dL (32.0-36.0); MEAN CORPUSCULAR VOLUME 89.6 fL (79-99); RED BLOOD CELL COUNT(AUTO) 4.7 MIL/uL (4.00-5.50); WHITE BLOOD COUNT (AUTO) 5.7 K/uL (4.8-10.8)
[2023-03-23 07:46] LABS: ALBUMIN 3.3 g/dL (3.5-5.0); BILIRUBIN,TOTAL 0.8 mg/dL (0.2-1.0); MAGNESIUM 2.1 mg/dL (1.80-2.40); POTASSIUM 3.8 mmol/L (3.5-5.1); TOTAL PROTEIN, SERUM 7.1 g/dL (6.0-8.3)
[2023-03-23] MEDS ORDERED: AMLODIPINE 5 MG TAB PO SCH (09:00)
[2023-03-23] MEDS: FAMOTIDINE 20MG TAB PO SCH (09:41)
[2023-03-23] MEDS: [UNRECOGNIZED DRUG - OTHER] PO SCH ×4 (10:01→21:37)
[2023-03-23] MEDS: HEPARIN 5,000 UNIT VIAL SQ SCH (14:08)
[2023-03-23] MEDS ORDERED: COMPOUND PO MISCELLANEOUS 1 EACH MISC MISC PRN (21:00)
[2023-03-23] MEDS: CEFTRIAXONE 2GM VIAL IVPB SCH (21:36)
[2023-03-24] MEDS: HEPARIN 5,000 UNIT VIAL SQ SCH (02:03)
[2023-03-24 04:00] VITALS: BP_SYST 150; BP_SYST 165; BP_DIAS 63; BP_DIAS 75; PULSE 65; PULSE 78; RESP 20
[2023-03-24 06:01] LABS: BASOPHILS # (AUTO) 0.01 K/uL (0.00-0.20); BASOPHILS % (AUTO) 0.2 % (0.0-5.0); EOSINOPHILS % (AUTO) 1.8 % (0.0-8.0); HEMATOCRIT 41.1 % (36-48); IMMATURE GRANULOCYTE ABSOLUTE 0.02 K/uL (0-1); LYMPHOCYTES # (AUTO) 2.1 K/uL (1.0-4.8); LYMPHOCYTES % (AUTO) 37.1 % (21.0-51.0); MEAN CORPUSCULAR HEMOGLOBIN 29.4 pg (27.0-33.0); MEAN CORPUSCULAR HGB CONC 32.1 g/dL (32.0-36.0); MEAN CORPUSCULAR VOLUME 91.5 fL (79-99); MONOCYTES # (AUTO) 0.5 K/uL (0.1-1.0); MONOCYTES % (AUTO) 8.9 % (3.0-13.0); NEUTROPHILS # (AUTO) 2.9 K/uL (1.8-7.7); NEUTROPHILS % (AUTO) 51.6 % (40.0-77.0); PLATELET COUNT (AUTO) 242 K/uL (130-400); RED BLOOD CELL COUNT(AUTO) 4.49 MIL/uL (4.00-5.50); RED CELL DISTRIBUTION WIDTH 14.8 % (11.0-15.5); WHITE BLOOD COUNT (AUTO) 5.6 K/uL (4.8-10.8)
[2023-03-24 06:12] LABS: ALBUMIN 3.1 g/dL (3.5-5.0); BILIRUBIN,TOTAL 0.4 mg/dL (0.2-1.0); CREATININE 0.9 mg/dL (0.5-1.5); POTASSIUM 3.6 mmol/L (3.5-5.1); TOTAL PROTEIN, SERUM 6.6 g/dL (6.0-8.3)
[2023-03-24 07:22] VITALS: PULSE 66; RESP 18; O2SAT 97
[2023-03-24 07:50] VITALS: O2SAT 98
[2023-03-24 08:00] VITALS: BP 146/73; PULSE 71; RESP 18
[2023-03-24] MEDS: FAMOTIDINE 20MG TAB PO SCH (08:38)
[2023-03-24] MEDS ORDERED: AMLODIPINE 5 MG TAB PO SCH (09:00)
[2023-03-24] MEDS ORDERED: AMLO5TAB4 PO (10:38)
== END 2023-03-24 15:00 | disposition home or self-care (01) ==
LOC: EDH 17:00 → EDHIP 17:01 → UNDOADMOB 22:50 → EDHIP 03-23 00:38 → 3AH 03-23 00:38
PROVIDERS: ADMIT Hospitalist; ATTEND Hospitalist
DX: U07.1 COVID-19 (principal); N39.0 Urinary tract infection, site not specified; J10.1 Influenza due to other identified influenza virus with other respiratory manifestations; M19.90 Unspecified osteoarthritis, unspecified site; M62.82 Rhabdomyolysis; I10 Essential (primary) hypertension; Q33.3 Agenesis of lung; Z28.310 Unvaccinated for COVID-19; Z78.9 Other specified health status; Z79.899 Other long term (current) drug therapy
CPT/HCPCS: 96365; 99285; 82550 ×2; 83735 ×3; 83874 ×2; 84484; 80053 ×3; 85025 ×2; 87088; 87880; 87804 ×2; 81001; 36415 ×3; 87635; 71045; 71275; 93005; 96372 ×2; 96366; 85027; 87071; 87205; 94664; 84145; G0378 ×40; C9803; J0696 ×2; Q9967; J1644 ×2

== ENCOUNTER 2023-07-19 14:20 | Inpatient (IN) | payer OTHER ==
[~2023-07-19] VITALS: Ht 152.4 cm; Wt 82.0 kg
[~2023-07-19 14:20] MED LIST changes: +AMLO5TAB4 PO; -SULF1TAB42 PO
[2023-07-19 14:48] LABS: HEMATOCRIT 42.2 % (36-48); MEAN CORPUSCULAR HEMOGLOBIN 29.4 pg (27.0-33.0); MEAN CORPUSCULAR HGB CONC 32.7 g/dL (32.0-36.0); RED BLOOD CELL COUNT(AUTO) 4.69 MIL/uL (4.00-5.50); RED CELL DISTRIBUTION WIDTH 14.7 % (11.0-15.5); WHITE BLOOD COUNT (AUTO) 7.4 K/uL (4.8-10.8)
[2023-07-19 15:12] LABS: CREATININE 1.1 mg/dL (0.5-1.5); MAGNESIUM 2.1 mg/dL (1.80-2.40)
[2023-07-19] MEDS ORDERED: NITROGLYCERIN 0.4 MG SL TAB SL PRN ×2 (15:30→18:00)
[2023-07-19] MEDS ORDERED: ASPIRIN 325MG TAB PO ONE (15:30)
[2023-07-19 16:23] LABS: RAPID GROUP A STREP negative (NEGATIVE)
[2023-07-19 16:33] LABS: SARS-CoV-2, RNA, NAAT NEGATIVE SARS CoV-2 (NEGATIVE)
[2023-07-19 16:37] LABS: INFLUENZA TYPE B Negative For Type B (NEGATIVE)
[2023-07-19 16:43] LABS: INFLUENZA TYPE A Positive For Type A (NEGATIVE)
[2023-07-19] MEDS ORDERED: LACTULOSE 20 GM/30 ML UDCUP PO PRN (18:00)
[2023-07-19] MEDS ORDERED: MAG/ALUM/SIMETH 30 ML UDCUP PO ONE (18:00)
[2023-07-19 18:21] VITALS: PULSE 80; RESP 16
[2023-07-19] MEDS: ALBUTEROL 0.083% 2.5 MG/3 ML INH IH SCH ×2 (18:21→23:14)
[2023-07-19] MEDS ORDERED: HYDRALAZINE 20MG/ML VIAL IV PRN (18:30)
[2023-07-19] MEDS: FAMOTIDINE 20MG VIAL IV SCH (20:57)
[2023-07-19] MEDS: OSELTAMIVIR PHOSPHATE 75 MG CAP PO SCH (20:58)
[2023-07-19 23:15] VITALS: PULSE 83; RESP 14
[2023-07-20] VITALS (11 sets, daily range): BP systolic 124–138; BP diastolic 56–72; PULSE 65–87; RESP 16–19; TEMP 99.9; O2SAT 93–99
[2023-07-20] MEDS ORDERED: ACETAMINOPHEN 325 MG TAB PO PRN
[2023-07-20] MEDS ORDERED: 0.9%NACL 1000ML 1,000 ML IV SCH (00:30)
[2023-07-20 06:03] LABS: APPEARANCE,URINE CLEAR (CLEAR); BILIRUBIN,URINE NEGATIVE (NEGATIVE); COLOR,URINE LIGHT-YELLOW (YELLOW); GLUCOSE, URINE (UA) TRACE mg/dL (NEGATIVE); KETONES,URINE NEGATIVE (NEGATIVE); LEUKOCYTE ESTERASE ,URINE NEGATIVE Leu/uL (NEGATIVE); NITRATE,URINE NEGATIVE (NEGATIVE); OCCULT BLOOD,URINE NEGATIVE (NEGATIVE); PROTEIN,URINE NEGATIVE (NEGATIVE); UROBILINOGEN,URINE 0.2 mg/dL (0.2-1.0)
[2023-07-20 06:08] LABS: ADD UA MICROSCOPIC NO
[2023-07-20] MEDS: ALBUTEROL 0.083% 2.5 MG/3 ML INH IH SCH ×4 (06:25→23:39)
[2023-07-20 06:53] LABS: BASOPHILS # (AUTO) 0.01 K/uL (0.00-0.20); BASOPHILS % (AUTO) 0.2 % (0.0-5.0); EOSINOPHILS # (AUTO) 0.01 K/uL (0.00-0.70); EOSINOPHILS % (AUTO) 0.2 % (0.0-8.0); IMMATURE GRANULOCYTE ABSOLUTE 0.01 K/uL (0-1); LYMPHOCYTES # (AUTO) 1.1 K/uL (1.0-4.8); LYMPHOCYTES % (AUTO) 26.5 % (21.0-51.0); MEAN CORPUSCULAR HEMOGLOBIN 29.1 pg (27.0-33.0); MEAN CORPUSCULAR HGB CONC 32.8 g/dL (32.0-36.0); MEAN CORPUSCULAR VOLUME 88.9 fL (79-99); MONOCYTES # (AUTO) 0.6 K/uL (0.1-1.0); MONOCYTES % (AUTO) 14.4 % (3.0-13.0); NEUTROPHILS # (AUTO) 2.4 K/uL (1.8-7.7); NEUTROPHILS % (AUTO) 58.5 % (40.0-77.0); PLATELET COUNT (AUTO) 205 K/uL (130-400); RED CELL DISTRIBUTION WIDTH 15.1 % (11.0-15.5); WHITE BLOOD COUNT (AUTO) 4.1 K/uL (4.8-10.8)
[2023-07-20 07:26] LABS: ALBUMIN 3.4 g/dL (3.5-5.0); BILIRUBIN,TOTAL 0.7 mg/dL (0.2-1.0); CREATININE 1.1 mg/dL (0.5-1.5); MAGNESIUM 2.3 mg/dL (1.80-2.40); POTASSIUM 3.4 mmol/L (3.5-5.1); TOTAL PROTEIN, SERUM 6.9 g/dL (6.0-8.3)
[2023-07-20] MEDS: FAMOTIDINE 20MG VIAL IV SCH ×2 (08:52→21:44)
[2023-07-20] MEDS: OSELTAMIVIR PHOSPHATE 75 MG CAP PO SCH ×2 (08:52→21:44)
[2023-07-20] MEDS: ENOXAPARIN SODIUM 30 MG/0.3 ML SQ SCH (08:52)
[2023-07-20] MEDS ORDERED: ONDANSETRON 4MG INJ IVP PRN (10:00)
[2023-07-20] MEDS: NS-20 MEQ KCL 1000ML 1,000 ML IV SCH ×2 (14:20→21:45)
[2023-07-21] VITALS (14 sets, daily range): BP systolic 116–147; BP diastolic 58–80; PULSE 65–91; RESP 18–19; O2SAT 93–99
[2023-07-21 04:20] LABS: BASOPHILS # (AUTO) 0.02 K/uL (0.00-0.20); BASOPHILS % (AUTO) 0.5 % (0.0-5.0); EOSINOPHILS # (AUTO) 0.01 K/uL (0.00-0.70); EOSINOPHILS % (AUTO) 0.2 % (0.0-8.0); HEMATOCRIT 36.8 % (36-48); IMMATURE GRANULOCYTE ABSOLUTE 0.01 K/uL (0-1); LYMPHOCYTES # (AUTO) 1.4 K/uL (1.0-4.8); LYMPHOCYTES % (AUTO) 33.8 % (21.0-51.0); MEAN CORPUSCULAR HEMOGLOBIN 29.1 pg (27.0-33.0); MEAN CORPUSCULAR HGB CONC 32.1 g/dL (32.0-36.0); MEAN CORPUSCULAR VOLUME 90.9 fL (79-99); MONOCYTES # (AUTO) 0.5 K/uL (0.1-1.0); MONOCYTES % (AUTO) 12.9 % (3.0-13.0); NEUTROPHILS # (AUTO) 2.2 K/uL (1.8-7.7); NEUTROPHILS % (AUTO) 52.4 % (40.0-77.0); PLATELET COUNT (AUTO) 200 K/uL (130-400); RED BLOOD CELL COUNT(AUTO) 4.05 MIL/uL (4.00-5.50); RED CELL DISTRIBUTION WIDTH 15.6 % (11.0-15.5); WHITE BLOOD COUNT (AUTO) 4.1 K/uL (4.8-10.8)
[2023-07-21 05:45] LABS: CREATININE 1.2 mg/dL (0.5-1.5); POTASSIUM 4.2 mmol/L (3.5-5.1)
[2023-07-21] MEDS: ALBUTEROL 0.083% 2.5 MG/3 ML INH IH SCH ×3 (08:09→18:21)
[2023-07-21] MEDS: ENOXAPARIN SODIUM 30 MG/0.3 ML SQ SCH (09:51)
[2023-07-21] MEDS: OSELTAMIVIR PHOSPHATE 75 MG CAP PO SCH ×2 (09:51→20:29)
[2023-07-21] MEDS: FAMOTIDINE 20MG VIAL IV SCH (09:51)
[2023-07-21] MEDS ORDERED: AZITHROMYCIN 500MG+NS 250ML 250 ML IVPB SCH (11:00)
[2023-07-21] MEDS ORDERED: HYDRALAZINE 20MG/ML VIAL IV PRN (12:30)
[2023-07-21] MEDS: NS-20 MEQ KCL 1000ML 1,000 ML IV SCH (14:34)
[2023-07-21] MEDS ORDERED: FAMOTIDINE 20MG VIAL IV SCH (21:00)
[2023-07-22 00:25] VITALS: PULSE 76; RESP 19
[2023-07-22] MEDS: ALBUTEROL 0.083% 2.5 MG/3 ML INH IH SCH ×2 (00:26→06:29)
[2023-07-22] MEDS: NS-20 MEQ KCL 1000ML 1,000 ML IV SCH (01:28)
[2023-07-22 04:18] VITALS: BP 142/72; PULSE 78; RESP 18
[2023-07-22 05:14] LABS: HEMATOCRIT 37.9 % (36-48); MEAN CORPUSCULAR HEMOGLOBIN 29.8 pg (27.0-33.0); MEAN CORPUSCULAR HGB CONC 32.2 g/dL (32.0-36.0); MEAN CORPUSCULAR VOLUME 92.4 fL (79-99); RED BLOOD CELL COUNT(AUTO) 4.1 MIL/uL (4.00-5.50); RED CELL DISTRIBUTION WIDTH 15.6 % (11.0-15.5); WHITE BLOOD COUNT (AUTO) 4.4 K/uL (4.8-10.8)
[2023-07-22 05:41] LABS: ALBUMIN 2.9 g/dL (3.5-5.0); BILIRUBIN,TOTAL 0.4 mg/dL (0.2-1.0); POTASSIUM 4.6 mmol/L (3.5-5.1); TOTAL PROTEIN, SERUM 6.2 g/dL (6.0-8.3)
[2023-07-22 06:29] VITALS: PULSE 68; RESP 18
[2023-07-22 06:31] VITALS: PULSE 68; RESP 18; O2SAT 95
[2023-07-22 07:45] VITALS: O2SAT 95
[2023-07-22 08:49] VITALS: BP 143/77; PULSE 79; RESP 18
[2023-07-22] MEDS ORDERED: AZIT250T9 PO (09:21)
[2023-07-22] MEDS ORDERED: OSEL75 PO (09:21)
[2023-07-22] MEDS: ENOXAPARIN SODIUM 30 MG/0.3 ML SQ SCH (10:00)
[2023-07-22] MEDS: OSELTAMIVIR PHOSPHATE 75 MG CAP PO SCH (10:00)
== END 2023-07-22 11:19 | disposition home or self-care (01) | DRG 206 ==
LOC: EDH 14:20 → EDHIP 17:47 → 2DH 07-20 17:20
PROVIDERS: ADMIT Internal Medicine; ATTEND Internal Medicine
DX: M94.0 Chondrocostal junction syndrome [Tietze] (principal); M62.82 Rhabdomyolysis; J10.1 Influenza due to other identified influenza virus with other respiratory manifestations; J40 Bronchitis, not specified as acute or chronic; Z20.822 Contact with and (suspected) exposure to COVID-19; N63.20 Unspecified lump in the left breast, unspecified quadrant; R59.1 Generalized enlarged lymph nodes; Z86.14 Personal history of Methicillin resistant Staphylococcus aureus infection; Z90.49 Acquired absence of other specified parts of digestive tract
CPT/HCPCS: 36415; 71045; 74176; 80048; 80053; 81003; 82550; 83036; 83690; 83735; 83880; 84145; 84443; 84484; 85025; 85027; 87071; 87205; 87635; 87804; 87880; 93005; 93306; 94640; 94664; C9803; G0378; J0456; J1650; J2405; J3480; J3490